=== PATIENT | female | born 1950 | race Caucasian/White ===

== ENCOUNTER 2019-12-01 10:27 | Emergency (ER) | payer MEDICARE, BC ==
--- NOTE | 2019-12-01 10:34 | ER Document Report ---
ED Medical Screen (RME) - General Chief Complaint: Vaginal Bleeding Stated Complaint: VAGINAL BLEED Time Seen by Provider: 12/01/19 10:33 Primary Care Provider: ALEX DANIELS DO [Primary Care Provider] - Follow up as needed Notes: 69 y/o female presents with hematuria and pelvic pressure. States pelvic pressure started first and then went to bathroom and "had a lot of blood." Pt has urine samples with her that appear to be dark red in color. States history of hysterectomy. Nontoxic well appearing. States it has been "years" since she had a UTI and usually only has spotting/pink with them. I have greeted and performed a rapid initial assessment of this patient. A comprehensive ED assessment and evaluation of the patient, analysis of test results and completion of the medical decision making process with be conducted by additional ED providers. TRAVEL OUTSIDE OF THE [place] IN LAST 30 DAYS: No Past Medical History - Past Medical History Cardiac Medical History: Reports: Hx Hypertension Psychiatric Medical History: Reports: Hx Anxiety - Immunizations Immunizations up to date: Yes Hx Diphtheria, Pertussis, Tetanus Vaccination: Yes Doctor's Discharge - Discharge Referrals: ALEX DANIELS DO [Primary Care Provider] - Follow up as needed
[2019-12-01 11:17] LABS: ABSOLUTE BASOPHILS # (AUTO) 0.1 10^3/uL (0.0-0.2); ABSOLUTE EOSINOPHILS # (AUTO) 0.1 10^3/uL (0.0-0.6); ABSOLUTE LYMPHOCYTES (AUTO) 0.8 10^3/uL (0.5-4.7); ABSOLUTE MONOCYTES (AUTO) 0.6 10^3/uL (0.1-1.4); ABSOLUTE NEUT (AUTO) 9.4 10^3/uL (1.7-8.2); BASOPHILS % (AUTO) 0.6 % (0-2); EOSINOPHILS % (AUTO) 0.5 % (0-6); HEMOGLOBIN 15.1 g/dL (12.0-15.5); LYMPHOCYTES % (AUTO) 7.4 % (13-45); MEAN CORPUSCULAR HEMOGLOBIN 28.9 pg (27.0-33.4); MEAN CORPUSCULAR HGB CONC 33.6 g/dL (32.0-36.0); MEAN CORPUSCULAR VOLUME 86 fl (80-97); MONOCYTES % (AUTO) 5.6 % (3-13); PLATELET COUNT 247 10^3/uL (150-450); RED BLOOD COUNT 5.23 10^6/uL (3.72-5.28); RED CELL DISTRIBUTION WIDTH 13.8 % (11.5-14.0); SEGMENTED NEUTROPHILS % (AUTO) 85.9 % (42-78); TOTAL CELLS COUNTED % (AUTO) 100 %
[2019-12-01 11:30] LABS: ALBUMIN 4.5 g/dL (3.5-5.0); ALKALINE PHOSPHATASE 107 U/L (38-126); ANION GAP 8 (5-19); ASPARTATE AMINO TRANSFERASE 30 U/L (14-36); BILIRUBIN,DIRECT 0.2 mg/dL (0.0-0.4); BILIRUBIN,TOTAL 1.1 mg/dL (0.2-1.3); BLOOD UREA NITROGEN 20 mg/dL (7-20); CALCIUM 9.2 mg/dL (8.4-10.2); CARBON DIOXIDE 27 mmol/L (22-30); CHLORIDE 105 mmol/L (98-107); GLUCOSE 110 mg/dL (75-110); POTASSIUM 4.2 mmol/L (3.6-5.0); TOTAL PROTEIN 7.9 g/dL (6.3-8.2)
[2019-12-01 12:06] LABS: APPEARANCE,URINE SLIGHTLY-CLOUDY; BILIRUBIN,URINE NEGATIVE (NEGATIVE); GLUCOSE, URINE NEGATIVE (NEGATIVE); KETONES,URINE NEGATIVE (NEGATIVE); PROTEIN,URINE 100 mg/dL (NEGATIVE); URINE SPECIFIC GRAVITY 1.019; UROBILINOGEN,URINE NEGATIVE mg/dL (<2.0)
[2019-12-01 12:07] LABS: COLOR,URINE RED
--- NOTE | 2019-12-01 13:30 | ER Document Report ---
ED GI/ - General Chief Complaint: Urinary Problem Stated Complaint: VAGINAL BLEED Time Seen by Provider: 12/01/19 10:33 Primary Care Provider: [facility] [Provider Group] - Follow up in 3-5 days Notes: Patient is a 69-year-old female who presents to the emergency department with a chief complaint of hematuria and pelvic pressure. Patient states that she started to feel the symptoms yesterday and today she had gross the medic area. She ended up going the bathroom and was not quite sure of whether or not the blood was coming from her vagina or her urine. She has history of a hysterectomy. TRAVEL OUTSIDE OF THE [place] IN LAST 30 DAYS: No - Related Data Allergies/Adverse Reactions: No Known Allergies Allergy (Verified 12/01/19 10:34) Past Medical History - Social History Smoking Status: Never Smoker Chew tobacco use (# tins/day): No Frequency of alcohol use: None Drug Abuse: None Family History: Reviewed & Not Pertinent Patient has suicidal ideation: No Patient has homicidal ideation: No - Past Medical History Cardiac Medical History: Reports: Hx Hypertension Psychiatric Medical History: Reports: Hx Anxiety - Immunizations Immunizations up to date: Yes Hx Diphtheria, Pertussis, Tetanus Vaccination: Yes Review of Systems - Review of Systems Notes: REVIEW OF SYSTEMS: CONSTITUTIONAL : Denies recent illness. Denies recent unintentional weight loss. Denies fever, chills, or sweats. EENT: Denies eye, ear, throat, or mouth pain, discharge, or symptoms. Denies nasal or sinus congestion. CARDIOVASCULAR: Denies chest pain. RESPIRATORY: Denies shortness of breath, cough, congestion, difficulty breathing, or wheezing. GASTROINTESTINAL: Denies nausea, vomiting, and diarrhea. See HPI. GENITOURINARY: See HPI. FEMALE GENITOURINARY: See HPI. MUSCULOSKELETAL: Denies neck and back pain. Denies joint pain or swelling. SKIN: Denies rash, itchiness, or lesions HEMATOLOGIC : Denies easy bruising or bleeding. LYMPHATIC: Denies swollen, painful, enlarged glands. NEUROLOGICAL: Denies no numbness or tingling denies weakness. Denies headache. Denies altered mental status. Denies alteration in speech. PSYCHIATRIC: Denies stress, anxiety, alteration in sleep patterns, or depression. All other systems reviewed and negative. Physical Exam - Vital signs Vitals: Temp Pulse Resp BP Pulse Ox 97.6 F 83 18 186/77 H 97 12/01/19 10:30 12/01/19 10:30 12/01/19 10:30 12/01/19 10:30 12/01/19 10:30 - Notes Notes: PHYSICAL EXAMINATION: GENERAL: Appears well, healthy, well-nourished, no acute distress. HEAD: Normocephalic, atraumatic. EYES: PERRL, conjunctiva normal, all extraocular movements intact, sclera nonicteric ENT: Moist mucous membranes. NECK: Supple, no noticeable swelling, redness, rash. Normal range of motion. LUNGS: Equal breath sounds bilaterally and clear to auscultation. No wheezes rales or rhonchi. CARDIOVASCULAR: S1-S2, regular rate, regular rhythm. Radial pulses 2+, normal. ABDOMEN: Normoactive bowel sounds. Soft, mildly tender mid lower abdomen, no guarding, no rebound tenderness, and no masses palpated. EXTREMITIES: Normal strength and range of motion, no pitting or edema. No cyanosis. NEUROLOGICAL: Moves all extremities upon command. Strength 5/5 in all extremities. PSYCH: Normal mood, normal affect. SKIN: Warm, dry. No rash, lesions, ulcerations noted. Normal skin turgor. 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 Course - Re-evaluation Re-evalutation: 12/01/19 13:50 WALT Orta accompanied me to evaluate the patient. There is no bleeding from her vagina. This is most likely coming from her urine. She does have a small amount of leukocytes in her urine.Patient has a mild leukocytosis of 11,000 with a left shift. Chemistries are unremarkable. Awaiting CT of the abdomen pelvis. 12/01/19 14:28 CT of the abdomen pelvis is negative for any acute stones. Patient has parapelvic cysts, which are consistent with her previous diagnosis. No hydronephrosis noted. I discussed these findings with the patient. I advised her that if she continues to have blood in her urine after having antibiotics, she needs to follow-up with urology and her primary care provider and she may have a follow-up CT with contrast. Follow-up precautions were given. Verbal discharge instructions were given to the patient. They verbalized underst anding. They are stable for discharge. - Vital Signs Vital signs: Temp Pulse Resp BP Pulse Ox 98 F 89 16 163/74 H 98 12/01/19 14:13 12/01/19 14:13 12/01/19 14:13 12/01/19 14:13 12/01/19 14:13 - Laboratory Result Diagrams: 12/01/19 10:50 12/01/19 10:50 Laboratory results interpreted by me: 12/01/19 12/01/19 10:50 11:30 WBC 11.0 H Lymph % (Auto) 7.4 L Absolute Neuts (auto) 9.4 H Seg Neutrophils % 85.9 H Urine Protein 100 H Urine Blood LARGE H Leukocyte Esterase Rfl SMALL H Discharge - Discharge Clinical Impression: Hematuria Qualifiers: Hematuria type: unspecified type Qualified Code(s): R31.9 - Hematuria, unspecified Urinary tract infection Qualifiers: Urinary tract infection type: acute cystitis Hematuria presence: with hematuria Qualified Code(s): N30.01 - Acute cystitis with hematuria Condition: Stable Disposition: HOME, SELF-CARE Instructions: Cephalexin ([facility]), Urinary Tract Infection ([facility]) Additional Instructions: You were seen today in the emergency department for hematuria area, which is blood in your urine. You are being sent home with antibiotics. Make sure you take all your antibiotics as prescribed. Please make sure that you are drinking plenty of water and make sure you take care of your self. Please follow-up with your primary care provider regards to this visit. Please follow-up with urology. Please follow-up with your primary care provider in the next 3 to 5 days. If you continue to have a lot of blood, please return to the emergency department. Prescriptions: Cephalexin [Keflex] 500 mg PO BID #14 capsule Referrals: [facility] [Provider Group] - Follow up in 3-5 days
[2019-12-01] MEDS ORDERED: NORMAL SALINE 1000 ML 1,000 ML IV ONE (13:49)
--- NOTE | 2019-12-01 13:54 | RADIOLOGY REPORT (SQ) ---
EXAM DESCRIPTION: CT ABD/PELVIS NO ORAL OR IV COMPLETED DATE/TIME: 12/01/2019 1:36 pm REASON FOR STUDY: hematuria COMPARISON: None. TECHNIQUE: CT scan of the abdomen and pelvis performed without intravenous or oral contrast. Images reviewed with lung, soft tissue, and bone windows. Reconstructed coronal and sagittal MPR images revi ewed. All images stored on PACS. All CT scanners at this facility use dose modulation, iterative reconstruction, and/or weight based d osing when appropriate to reduce radiation dose to as low as reasonably achievable (ALARA). [facility]: Dose Right [facility]: CareDose [facility]: Dose Right [facility]: Teradose 4D [facility]: Smart [employer] RADIATION DOSE: CT Rad equipment meets quality standard of care and radiation dose reduction techniq ues were employed. CTDIvol: 9.0 mGy. DLP: 464 mGy-cm.mGy. LIMITATIONS: None. FINDINGS: LOWER CHEST: No significant findings. No nodules or infiltrates. NON-CONTRASTED LIVER, SPLEEN, ADRENALS: Probable subcentimeter cyst in the right lateral liver dome. Spleen unremarkable. No adrenal mass. PANCREAS: No masses. No peripancreatic inflammatory changes. GALLBLADDER: No identified stones by CT criteria. No inflammatory changes to suggest cholecystitis. RIGHT KIDNEY AND URETER: Suspect prominent parapelvic cysts. Doubt hydronephrosis. No stones in the kidney or along the course of the ureter. LEFT KIDNEY AND URETER: Suspect prominent parapelvic cysts, more extensive than on the right. No pallavi al or ureteral stones suggested. AORTA AND RETROPERITONEUM: No aneurysm. No retroperitoneal masses or adenopathy. BOWEL AND PERITONEAL CAVITY: No obvious masses or inflammatory changes. No free fluid. APPENDIX: Normal. PELVIS, BLADDER, AND ABDOMINAL WALL:Bladder decompressed. No pelvic mass or fluid. No significant a bdominal wall hernia or mass. BONES: No significant findings. OTHER: No other significant finding. IMPRESSION: 1. Suspect left greater than right prominent parapelvic cysts in the kidneys. Hydronephrosis is felt to be less likely, particularly given lack of any visualized stones. Given the history of hematuria , further workup may be warranted. Further imaging could include IV contrasted study with delayed im aging. This can be scheduled and performed on an elective outpatient basis unless the patient has si gnificant pain warranting more urgent evaluation. TECHNICAL DOCUMENTATION: JOB ID: [id number] Quality ID # [id number]: Final reports with documentation of one or more dose reduction techniques (e.g., Au tomated exposure control, adjustment of the mA and/or kV according to patient size, use of iterative reconstruction technique) 2010 [employer]- All Rights Reserved Reading location - IP/workstation name: [email or web address]
[2019-12-01 14:14] VITALS: BP 163/74
== END 2019-12-01 14:48 | disposition home or self-care (01) ==
LOC: ER 10:27
DX: N30.01 Acute cystitis with hematuria (principal); N94.89 Other specified conditions associated with female genital organs and menstrual cycle; I10 Essential (primary) hypertension
CPT/HCPCS: 36415; 74176; 80053; 81001; 85025; 87086; 87088; 87186; 99284